=== PATIENT | female | born 1990 | race Caucasian/White ===

== ENCOUNTER 2018-05-06 17:45 | Inpatient (IN) | payer OTHER ==
[2018-05-06] MEDS ORDERED: CARBOPROST 250 MCG INJ IM (18:00)
[2018-05-06] MEDS ORDERED: LIDOCAINE 1% (MPF) 30 ML INJ INJ (18:00)
[2018-05-06] MEDS ORDERED: METHYLERGONOVINE 0.2 MG INJ IM (18:00)
[2018-05-06] MEDS ORDERED: OXYTOCIN 30 UNITS/LR 500 ML IV ×2 (18:00)
[2018-05-06] MEDS ORDERED: MISOPROSTOL 200 MCG TAB PR (18:00)
[2018-05-06] MEDS: LACTATED RINGER'S 1,000 ML IV (18:29)
[2018-05-06 18:56] LABS: ADD MAN DIFF? NO
[2018-05-06 18:58] LABS: BASOPHILS % 0.3 % (0.0-2.0); EOSINOPHILS # 0.1 10^3/ul (0.0-0.5); EOSINOPHILS % 0.5 % (0.0-7.0); HEMATOCRIT 39.5 % (37.0-47.0); HEMOGLOBIN 12.9 g/dl (12.0-16.0); LYMPHOCYTES # 1.5 10^3/ul (0.8-2.9); LYMPHOCYTES % 14.7 % (15.0-51.0); MEAN CORPUSCULAR HEMOGLOBIN 28.4 pg (29.0-33.0); MEAN CORPUSCULAR HGB CONC 32.7 g/dl (32.0-37.0); MEAN CORPUSCULAR VOLUME 86.8 fl (82.0-101.0); MEAN PLATELET VOLUME 9.6 fl (7.4-10.4); MONOCYTE # 0.5 10^3/ul (0.3-0.9); MONOCYTES % 4.8 % (0.0-11.0); NEUTROPHIL # 8.2 10^3/ul (1.6-7.5); NEUTROPHILS % 78.8 % (39.0-77.0); PLATELET COUNT 359 10^3/UL (140-415); RED BLOOD COUNT 4.55 10^6/ul (4.20-5.40); RED CELL DISTRIBUTION WIDTH 14.1 % (11.5-14.5)
[2018-05-06 18:58] LABS: WHITE BLOOD COUNT 10.4 10^3/ul (4.8-10.8)
[2018-05-06 19:17] LABS: INR 0.85; PROTIME 11.7 Sec (11.9-14.9); PT RATIO 0.9
[2018-05-06 19:18] LABS: PARTIAL THROMBOPLASTIN TIME 25.6 Sec (23.0-35.0)
[2018-05-06 19:49] LABS: HEPATITIS B SURFACE ANTIGEN NEGATIVE (NEGATIVE)
[2018-05-06] MEDS: MISOPROSTOL 50 MCG CAPSULE PO (20:13)
[2018-05-06 21:02] LABS: ADD UMIC YES; UR ASCORBIC ACID 40 mg/dL (NEGATIVE); UR BILIRUBIN (Dip) NEGATIVE (NEGATIVE); UR BLOOD (Dip) NEGATIVE (NEGATIVE); UR CLARITY TURBID (CLEAR); UR GLUCOSE (Dip) NEGATIVE (NEGATIVE); UR KETONES (Dip) NEGATIVE (NEGATIVE); UR LEUKOCYTE ESTERASE (Dip) NEGATIVE Leu/ul (NEGATIVE); UR NITRITE (Dip) NEGATIVE (NEGATIVE); UR RBC 1 /HPF (0-5); UR SQUAMOUS EPITHELIAL CELL FEW /HPF (FEW); UR TOTAL PROTEIN (Dip) NEGATIVE (NEGATIVE); UR UROBILINOGEN (Dip) NEGATIVE (NEGATIVE); UR WBC 1 /HPF (0-5)
[2018-05-06 21:21] LABS: AMPHETAMINE/METHAMPHETAMINE Negative (NEGATIVE); BARBITURATES Negative (NEGATIVE); BENZODIAZEPINES Negative (NEGATIVE); CANNABINOIDS Negative (NEGATIVE); COCAINE Negative (NEGATIVE); OPIATES Negative (NEGATIVE)
[2018-05-06 22:17] LABS: RAPID PLASMA REAGIN NONREACTIVE (NR)
[2018-05-07] MEDS: LACTATED RINGER'S 1,000 ML IV ×6 (00:08→18:41)
[2018-05-07] MEDS: MISOPROSTOL 50 MCG CAPSULE PO ×3 (00:43→13:09)
[2018-05-07 00:58] LABS: UR COLOR YELLOW (YELLOW)
[2018-05-07] MEDS: BUTORPHANOL 2 MG INJ IV (09:33)
[2018-05-07] MEDS ORDERED: DIPHENHYDRAMINE 50 MG INJ IV (12:00)
[2018-05-07] MEDS ORDERED: NALOXONE (0.4 MG/ML) INJ IV (12:00)
[2018-05-07] MEDS ORDERED: ONDANSETRON 4 MG INJ IV (12:00)
[2018-05-07] MEDS: FENTAnyl 2MCG/ML-ROPIV 0.2% 100 ML BAG EPI ×2 (12:33→18:44)
[2018-05-07] MEDS: OXYTOCIN 30 UNITS/LR 500 ML IV ×3 (17:07→23:36)
[2018-05-07] MEDS ORDERED: MINERAL OIL LIGHT 10 ML VIAL (22:06)
[2018-05-08] MEDS: IBUPROFEN 600 MG TAB PO ×4 (01:00→17:24)
[2018-05-08] MEDS ORDERED: HYDROCODONE/APAP (5/325) TAB PO ×2 (02:30)
[2018-05-08] MEDS ORDERED: OXYTOCIN 30 UNITS/LR 500 ML IV (02:30)
[2018-05-08] MEDS ORDERED: METHYLERGONOVINE 0.2 MG INJ IM (02:30)
[2018-05-08] MEDS ORDERED: MISOPROSTOL 200 MCG TAB PR (02:30)
[2018-05-08] MEDS ORDERED: DIBUCAINE 1% 30 GM OINT TOP (02:30)
[2018-05-08] MEDS ORDERED: ZOLPIDEM 5 MG TAB PO (02:30)
[2018-05-08] MEDS ORDERED: CARBOPROST 250 MCG INJ IM (02:30)
[2018-05-08] MEDS: MISOPROSTOL 50 MCG CAPSULE PO ×2 (02:58→02:59)
[2018-05-08] MEDS: KETOROLAC 30 MG INJ IV (02:59)
[2018-05-08] MEDS: LACTATED RINGER'S 1,000 ML IV* ×2 (03:16→10:13)
[2018-05-08] MEDS: LANOLIN HPA 1 PKT TOP (03:17)
[2018-05-08] MEDS: BENZOCAINE 20% 56 ML SPRAY TOP (03:17)
[2018-05-08] MEDS: WITCH HAZEL/GLYCERIN PAD PR (03:17)
[2018-05-08] MEDS: CEPHALEXIN 500 MG CAP PO ×3 (06:05→17:24)
[2018-05-08 06:50] LABS: ADD MAN DIFF? NO
[2018-05-08 06:54] LABS: BASOPHILS % 0.2 % (0.0-2.0); HEMATOCRIT 33.9 % (37.0-47.0); HEMOGLOBIN 11.2 g/dl (12.0-16.0); LYMPHOCYTES # 1.7 10^3/ul (0.8-2.9); LYMPHOCYTES % 7.8 % (15.0-51.0); MEAN CORPUSCULAR HEMOGLOBIN 28.7 pg (29.0-33.0); MEAN CORPUSCULAR VOLUME 86.9 fl (82.0-101.0); MEAN PLATELET VOLUME 9.8 fl (7.4-10.4); MONOCYTE # 1.1 10^3/ul (0.3-0.9); MONOCYTES % 5.2 % (0.0-11.0); NEUTROPHIL # 18.4 10^3/ul (1.6-7.5); NEUTROPHILS % 86.1 % (39.0-77.0); PLATELET COUNT 282 10^3/UL (140-415); RED CELL DISTRIBUTION WIDTH 14.1 % (11.5-14.5)
[2018-05-08 06:54] LABS: WHITE BLOOD COUNT 21.4 10^3/ul (4.8-10.8)
[2018-05-08] MEDS: SENNA/DOCUSATE NA (8.6MG/50MG) TAB PO ×2 (09:45→20:59)
[2018-05-08] MEDS: MAGNESIUM HYDROXIDE 30ML CUP PO ×2 (09:45→20:58)
[2018-05-09] MEDS: CEPHALEXIN 500 MG CAP PO ×3 (00:05→11:37)
[2018-05-09] MEDS: IBUPROFEN 600 MG TAB PO ×3 (00:05→11:37)
[2018-05-09] MEDS: DIPHTH/TET/ACEL PERTUSS (ADULT) 0.5 ML VIAL IM* (07:33)
[2018-05-09 07:43] LABS: ADD MAN DIFF? NO
[2018-05-09 07:47] LABS: WHITE BLOOD COUNT 14.4 10^3/ul (4.8-10.8)
[2018-05-09 07:47] LABS: BASOPHILS % 0.2 % (0.0-2.0); EOSINOPHILS # 0.3 10^3/ul (0.0-0.5); EOSINOPHILS % 1.9 % (0.0-7.0); HEMATOCRIT 33.3 % (37.0-47.0); HEMOGLOBIN 10.6 g/dl (12.0-16.0); LYMPHOCYTES # 2.9 10^3/ul (0.8-2.9); MEAN CORPUSCULAR HEMOGLOBIN 28.4 pg (29.0-33.0); MEAN CORPUSCULAR HGB CONC 31.8 g/dl (32.0-37.0); MEAN CORPUSCULAR VOLUME 89.3 fl (82.0-101.0); MEAN PLATELET VOLUME 9.8 fl (7.4-10.4); MONOCYTE # 0.7 10^3/ul (0.3-0.9); MONOCYTES % 4.9 % (0.0-11.0); NEUTROPHIL # 10.4 10^3/ul (1.6-7.5); NEUTROPHILS % 72.4 % (39.0-77.0); PLATELET COUNT 285 10^3/UL (140-415); RED BLOOD COUNT 3.73 10^6/ul (4.20-5.40); RED CELL DISTRIBUTION WIDTH 14.4 % (11.5-14.5)
[2018-05-09] MEDS: SENNA/DOCUSATE NA (8.6MG/50MG) TAB PO (09:00)
[2018-05-09] MEDS: MAGNESIUM HYDROXIDE 30ML CUP PO (09:00)
[2018-05-09] MEDS: BENZOCAINE 20% 56 ML SPRAY TOP (09:54)
[2018-05-09] MEDS: VARICELLA VACCINE LIVE/PF 1,350 UNIT/0.5 ML ML SC* (09:56)
[2018-05-09] MEDS: MEASLES,MUMPS,RUBELLA VACCINE INJ SC* (09:56)
== END 2018-05-09 15:04 | disposition home or self-care (01) | DRG 807 ==
LOC: L-D 05-07 15:10 → PP1 05-08 01:47 → L-D 17:45
PROVIDERS: Obstetrics & Gynecology
PROC: 10E0XZZ Delivery of Products of Conception, External Approach (ICD-10-PCS; principal; 2018-05-07)
PROC: 0HQ9XZZ Repair Perineum Skin, External Approach (ICD-10-PCS; 2018-05-07)
DX: O48.0 Post-term pregnancy (principal); O70.0 First degree perineal laceration during delivery; Z37.0 Single live birth; Z3A.40 40 weeks gestation of pregnancy
CPT/HCPCS: 62319; 76815; 80307; 81001; 85025; 85610; 85730; 86592; 86850; 86900; 86901; 87086; 87340; 90716